=== PATIENT | female | born 1935 | race Caucasian/White ===

== ENCOUNTER 2018-07-18 08:11 | Observation (INO) | payer MEDICARE, MEDICAID ==
[2018-07-18] MEDS ORDERED: Nitroglycerin 0.4 MG TAB (25 Tab Bottle) ONE (08:40)
[2018-07-18] MEDS ORDERED: Aspirin Chewable 81 MG TAB ONE (08:40)
[2018-07-18 08:55] LABS: #Basophils 0.1 thou/uL (0.0-0.2); #Eosinphils 0.2 thou/uL (0.0-0.7); #Lymphocytes 2.1 thou/uL (1.20-3.40); #Monocytes 0.7 thou/uL (0.11-0.59); #Neutrophils 5.5 thou/uL (1.40-6.50); %Basophils 1.3 % (0.0-1.0); %Eosinophils 2.7 % (0.0-10.0); %Lymphocytes 24.5 % (21.0-51.0); %Monocytes 7.9 % (0.0-10.0); %Neutrophils 63.6 % (42.0-75.0); Hemoglobin 13.8 g/dL (12.0-16.0); Mean Corpuscular HGB CONC 33.2 g/dL (32.0-36.0); Mean Corpuscular Hemoglobin 32.1 pg (27.0-31.0); Mean Corpuscular Volume 96.8 fL (78.0-98.0); Mean Platelet Volume 9.5 fL (7.4-10.4); Platelet Count 207 thou/uL (130-400); RBC Distribution Width 12.2 % (11.5-14.5); Red Blood Cell (RBC) Count 4.29 mill/uL (4.20-5.40); White Blood Cell (WBC) Count 8.6 thou/uL (4.8-10.8)
--- NOTE | 2018-07-18 09:04 | RAD ---
AP CHEST: History: Chest pain Comparison: None. FINDINGS: Lungs are clear of infiltrate. No evidence of vascular congestion or edema. No effusion. Linear stran ding in the left midlung peripherally. There are post op sternotomy changes. Heart size upper normal. IMPRESSION: No acute process apparent. POS: [facility]
[2018-07-18 10:06] LABS: ALT (SGPT) 10 U/L (8-55); AST (SGOT) 20 U/L (5-34); Alkaline Phosphatase 114 U/L (40-150); Anion Gap 15 mmol/L (10-20); BUN (Urea Nitrogen) 19 mg/dL (9.8-20.1); Bilirubin, Total 0.8 mg/dL (0.2-1.2); Calc. Creatinine Clearance 0 mL/min (70-130); Calcium 9.2 mg/dL (7.8-10.44); Carbon Dioxide 17 mmol/L (23-31); Chloride 110 mmol/L (98-107); Estimated GFR-MDRD 49; Globulin 3.1 g/dL (2.4-3.5); Glucose 93 mg/dL (83-110); Potassium 4.6 mmol/L (3.5-5.1); Protein, Total 7.1 g/dL (6.0-8.3); Sodium 137 mmol/L (136-145)
[2018-07-18 14:02] VITALS: BMI 38.0
[2018-07-18] MEDS ORDERED: Nitroglycerin 0.4 MG TAB (25 Tab Bottle) SL PRN ×2 (14:57→14:59)
[2018-07-18] MEDS ORDERED: cloNIDine 0.1 MG TAB PO PRN (14:57)
[2018-07-18] MEDS ORDERED: hydrALAZINE 20 MG/ML VIAL SLOW IVP PRN (14:57)
[2018-07-18] MEDS ORDERED: Ondansetron PF 4 MG/2 ML Vial IVP PRN ×2 (14:57)
[2018-07-18] MEDS ORDERED: Diabetic Tussin 200 MG/10 ML UDCUP PO PRN (14:57)
[2018-07-18] MEDS ORDERED: Sodium Chloride 0.65% Nasal 44 ML BOT EA NARE PRN (14:57)
[2018-07-18] MEDS ORDERED: Bisacodyl 5 MG TAB PO PRN (14:57)
[2018-07-18] MEDS ORDERED: Benzonatate 100 MG CAP PO PRN (14:57)
[2018-07-18] MEDS ORDERED: Acetaminophen 325 MG TAB PO PRN ×2 (14:57→15:39)
[2018-07-18] MEDS ORDERED: Senokot S 8.6-50 MG TAB PO PRN (14:57)
[2018-07-18] MEDS ORDERED: Acetaminophen 500 MG TAB PO PRN (14:57)
[2018-07-18] MEDS ORDERED: Meclizine HCl 12.5 MG TAB PO PRN (14:59)
[2018-07-18] MEDS ORDERED: Alendronate Sodium 70 mg Tablet PO SCH (15:00)
[2018-07-18 15:40] LABS: Troponin I Less than 0.010 ng/mL (< 0.028)
--- NOTE | 2018-07-18 17:41 | HP ---
PRIMARY CARE PHYSICIAN: Deedee Berg MD CHIEF COMPLAINT: Chest pain. HISTORY OF PRESENTING ILLNESS: Ms. Blum is a pleasant 82-year-old female with past medical history of some sort of cardiac disease, status post some sort of cardiac surgery with creping machine operator helper in [place], as well as history of dyslipidemia and hypertension and CVA, who presented to [facility] with above-mentioned complaints. History is mainly obtained by the patient herself, who is rather poor historian. No family members are present at bedside at this time. Case has been discussed with the emergency room physician, . Ms. Blum recently moved to [facility] three months ago to be with her family. She moved from [place]. She reports that about 5 or 6 years ago, she had some sort of heart surgery to do something "with her valve." As per the EMR, it states that she has undergone coronary artery bypass graft, but the patient denies having undergone any bypass surgery. Nevertheless, she has been doing well since then and follows up with a creping machine operator helper in [place] every six months. Yesterday evening, she had this chest tightness that would not go away. It was more of a colicky in nature and was associated with shortness of breath and dizziness. She denies any nausea or vomiting. She denies any recent illnesses. She normally takes a baby aspirin at home, which she has taken yesterday. She called her son and he brought her to the hospital at [facility]. Upon presentation to the ER this morning, her blood pressure was 155/77 with a pulse of 74. She was otherwise hemodynamically stable. She received a nitroglycerin sublingual with resolution of her pain. Her EKG showed some T-wave inversions in leads V1 and V2, AVF, and V3. Chest x-ray was unremarkable. Her cardiac enzymes were trended and were negative x3. Because of her history of coronary artery disease and inverted T-waves, she is now being admitted for further workup and ACS rule out. At the time of my evaluation, the patient is very comfortable. She is talkative and has no residual chest pain. PAST MEDICAL HISTORY: 1. Likely coronary artery disease, status post coronary artery bypass graft. No clear history is available in the chart. 2. Dyslipidemia. 3. Hypertension. 4. History of CVA. 5. Dementia. PAST SURGICAL HISTORY: As per the [facility], coronary artery bypass graft. PSYCHIATRIC HISTORY: None. SOCIAL HISTORY: She is currently living independently close to her family. She is independent with her ADLs and IDLs. She is a former tobacco abuser, but none currently. ALLERGIES: NO KNOWN MEDICATION ALLERGIES. CURRENT MEDICATIONS: 1. Alendronate every 7 days. 2. Aspirin 81 mg daily. 3. Sublingual nitroglycerin p.r.n. 4. Pravastatin 80 mg daily. 5. Aleve b.i.d. p.r.n. 6. Procardia XL 30 mg daily. 7. Antivert b.i.d. p.r.n. 8. Metoprolol tartrate 12.5 mg p.o. b.i.d. CODE STATUS: Full code as discussed with the patient. She wants to be alive for her dog, who she has for last 19 years. REVIEW OF SYSTEMS: A 12-point review of system is done, it is negative except for those mentioned in the history and physical. LABORATORY DATA: Unremarkable. Serum chemistry is unremarkable except for chloride high at 110, bicarbonate of 17. The troponin is less than 0.10 x3. Liver enzymes, unremarkable. Chest x-ray by my review has no evidence of pleural effusion, edema, or infiltrate. A 12-lead EKG by my review shows inverted T leads as above, otherwise normal sinus rhythm. PHYSICAL EXAMINATION: VITAL SIGNS: Most recent; temperature 97.6, pulse of 68, respirations 18, saturating 95% on room air, blood pressure 117/59. GENERAL: No acute distress. Awake, alert, and oriented x3. Lying comfortably in bed. HEENT: Mucous membrane is slightly dry. No oropharyngeal exudate or erythema. Head is normocephalic, atraumatic. Pupils are equal and reactive to light and accommodation. Extraocular movements are intact. NECK: Supple without any lymphadenopathy, JVD, or bruit. CHEST: Clear to auscultation without any wheezing, rales, rhonchi. HEART: Rate rhythm is regular without any murmurs, rubs, or gallops. ABDOMEN: Soft, nontender, nondistended. Positive bowel sounds. EXTREMITIES: Free of any cyanosis, clubbing, or edema. NEUROLOGIC: Nonfocal. SKIN: Free of any rashes or bruises. Feels warm and dry to touch. PSYCHIATRIC: Normal affect. IMPRESSION AND PLAN: 1. Chest pain. The patient's pain was relieved with nitroglycerin and she has history of coronary artery disease with inverted T-waves in the EKG. This is quite concerning for ACS. She will be admitted to telemetry unit and we will obtain a stress test. I have given her option to refer her to Cardiology as an outpatient if a stress test is negative, but she would rather follow up with her own creping machine operator helper in [place]. She is otherwise asymptomatic at the moment and we will restart her home medication of aspirin, statin, and beta eric. She is hemodynamically stable as well. 2. History of coronary artery disease. Restart home medications as above. 3. Hypertension. Restart Procardia as well as beta eric. 4. Dyslipidemia. Restart her pravastatin and check lipid panel in the morning. 5. Code status. Full code as discussed in detail with the patient. 6. Deep venous thrombosis and gastrointestinal prophylaxis. DISPOSITION: Ms. Blum is currently being admitted in the hospital for chest pain workup to rule out ACS. She is in observation status for now. Further management will depend upon her clinical course. Job ID: [id number]
[2018-07-18] MEDS: Metoprolol Tartrate 25 MG TAB PO SCH (20:51)
[2018-07-18] MEDS ORDERED: Atorvastatin Calcium 20 MG TAB PO SCH (21:00)
[2018-07-19 06:18] LABS: Anion Gap 12 mmol/L (10-20); BUN (Urea Nitrogen) 15 mg/dL (9.8-20.1); Calc. Creatinine Clearance 60 mL/min (70-130); Carbon Dioxide 22 mmol/L (23-31); Cardiac Risk 2.9 (Less than 4.5); Chloride 109 mmol/L (98-107); Cholesterol 123 mg/dl (< 200 Desired); Estimated GFR-MDRD 55; Glucose 84 mg/dL (83-110); HDL Cholesterol 42 mg/dL (>60 Neg Risk); LDL Cholesterol, Calculated 64 mg/dL; Potassium 4.1 mmol/L (3.5-5.1); Sodium 139 mmol/L (136-145); Triglycerides 84 mg/dL (Less than 150)
[2018-07-19 06:20] LABS: #Basophils 0.1 thou/uL (0.0-0.2); #Eosinphils 0.2 thou/uL (0.0-0.7); #Monocytes 0.6 thou/uL (0.11-0.59); #Neutrophils 4.1 thou/uL (1.40-6.50); %Basophils 1.3 % (0.0-1.0); %Eosinophils 3.1 % (0.0-10.0); %Lymphocytes 28.2 % (21.0-51.0); %Monocytes 8.9 % (0.0-10.0); %Neutrophils 58.5 % (42.0-75.0); Hemoglobin 13.5 g/dL (12.0-16.0); Mean Corpuscular HGB CONC 32.6 g/dL (32.0-36.0); Mean Corpuscular Hemoglobin 32.5 pg (27.0-31.0); Mean Corpuscular Volume 99.8 fL (78.0-98.0); Platelet Count 203 thou/uL (130-400); RBC Distribution Width 11.8 % (11.5-14.5); Red Blood Cell (RBC) Count 4.15 mill/uL (4.20-5.40)
[2018-07-19] MEDS: Metoprolol Tartrate 25 MG TAB PO SCH (08:49)
[2018-07-19] MEDS ORDERED: NIFEdipine XL 30 MG TAB PO SCH ×2 (09:00)
[2018-07-19] MEDS ORDERED: Aspirin 81 mg Enteric Coated Tablet PO SCH (09:00)
[2018-07-19] MEDS ORDERED: Enoxaparin Sodium 40 MG/0.4 ML SYRINGE SC SCH (09:00)
[2018-07-19] MEDS ORDERED: ADENOSINE 60 MG/20 ML VIAL ONE (10:49)
[2018-07-19 13:42] VITALS: BP 125/60; TEMP 97
--- NOTE | 2018-07-19 14:31 | NM ---
MYOCARDIAL PERFUSION EVALUATION: INDICATIONS: Chest pain. RADIOPHARMACEUTICAL: Technetium 99m sestamibi 32 millicuries IV. FINDINGS: There is no significant perfusion defect of the left ventricular graff to indicate ischemia or scar. Gated imaging is performed, which reveals appropriate wall motion and contractility, and there is a calculated LVEF of 83%. IMPRESSION: 1. Unremarkable stress only myocardial perfusion evaluation. 2. Normal left ventricular systolic function. POS: [facility]
--- NOTE | 2018-07-19 15:09 | DIS ---
DATE OF ADMISSION: 07/18/2018 DATE OF DISCHARGE: 07/19/2018 PRIMARY CARE PHYSICIAN: Apoorva Mullins PA-C, out of town. CONDITION: At the time of discharge, stable and improved. DISCHARGE DIAGNOSES: 1. Chest pain, noncardiac, acute coronary syndrome ruled out. 2. History of coronary artery disease. 3. Dyslipidemia. 4. Hypertension. 5. Cerebrovascular accident. 6. Dementia. DISCHARGE DISPOSITION: Home. DISCHARGE MEDICATIONS: Resume home medications. No changes were made. Please see H and P for details. PROCEDURES DONE IN HOSPITAL: Nuclear medicine stress test, which shows no evidence of any wall motion abnormality or ischemia. EF estimated at 83%. HISTORY OF PRESENT ILLNESS: Ms. Blum is a very pleasant 82-year-old female with past medical history of coronary artery disease, who follows up with out of town business and services instructor, came to the emergency room with one episode of chest pain that was relieved with nitroglycerin. She was admitted for ACS workup. Please see admission history and physical for further detail. HOSPITAL COURSE: The patient remained asymptomatic and stable throughout the rest of her hospitalization. Serial cardiac enzymes were drawn and were unremarkable. EKG did not show any evidence of ST elevation or depression. Lipid panel was unremarkable. She underwent a stress test that was normal. She has no symptoms and is eager to go home and will follow up with her own business and services instructor in the outpatient setting. She lives independently near her family. She was seen and examined prior to discharge. She has no new complaints. Feels well. Her vital signs are stable with heart rate 125/60, respirations 16, pulse of 80. No chest pain. No acute distress. Rate and rhythm are regular. Chest clear to auscultation bilaterally. Job ID: [id number]
== END 2018-07-19 17:27 | disposition home or self-care (01) ==
LOC: SCSER 08:11 → ERHOLD 10:47 → 2SW 12:53
PROVIDERS: ADMIT Internal Medicine; ATTEND Internal Medicine
DX: R07.89 Other chest pain (principal); E78.5 Hyperlipidemia, unspecified; I10 Essential (primary) hypertension; F03.90 Unspecified dementia, unspecified severity, without behavioral disturbance, psychotic disturbance, mood disturbance, and anxiety; Z79.82 Long term (current) use of aspirin; Z79.899 Other long term (current) drug therapy; Z87.891 Personal history of nicotine dependence; Z86.73 Personal history of transient ischemic attack (TIA), and cerebral infarction without residual deficits; Z95.1 Presence of aortocoronary bypass graft
CPT/HCPCS: 71045; 78452; 80048; 80053; 80061; 84484 ×2; 85025 ×2; 93005; 93017; 96372; 97139; 99285; A9500; G0378; 36415; J0153; J1650